=== PATIENT | female | born 1965 | race Caucasian/White ===

== ENCOUNTER 2019-01-11 15:00 | Emergency (ER) | payer BC ==
[2019-01-11] MEDS ORDERED: Tetan/Diph/Pertus SYR(Tdap)* 0.5 ML SYR(BOOSTRIX) use SYR IM ONE (16:01)
[2019-01-11] MEDS ORDERED: Lidocaine 1%** 5 ML VIAL INJ ONE (16:43)
--- NOTE | 2019-01-11 16:44 | ED ---
Upper Extremity Pain - HPI Summary HPI Summary: Patient is a 53-year-old female who presents emergency department for avulsion to second digit of the left hand that occurred earlier today. Patient states she was working outside when her dog tried to get out of dried so patient quickly closed rash and her second digit of left hand got pinched in door. Patient notes her last tetanus immunization was last year. Symptoms are mild in severity. Touching affected area makes symptoms worse. Nothing makes symptoms better. No other injuries sustained. - History of Current Complaint Chief Complaint: EDLacSutureRecheck Stated Complaint: LT INDEX FINGER INJ PER PT Time Seen by Provider: 01/11/19 15:07 Hx Obtained From: Patient - Allergies/Home Medications Allergies/Adverse Reactions: Allergies Allergy/AdvReac Type Severity Reaction Status Date / Time MS Penicillin V Allergy Intermediate Rash Verified 02/23/15 09:38 [Penicillin V] Penicillins Allergy Intermediate Rash Verified 01/11/19 15:35 MS NSAIDs [NSAIDs] AdvReac Intermediate GI Upset Verified 02/23/15 09:38 NSAIDS (Non-Steroidal AdvReac Intermediate GI Upset Verified 01/11/19 15:35 Anti-Inflamma Home Medications: Home Medications Budesonide CAP(NF) 3 tab PO DAILY 01/11/19 [History Confirmed 01/11/19] inFLIXimab* [Remicade*] 1 applic IV SEE INSTRUCTIONS 01/11/19 [History Confirmed 01/11/19] PMH/Surg Hx/FS Hx/Imm Hx Previously Healthy: Yes Endocrine/Hematology History: Denies: Hx Diabetes, Hx Thyroid Disease Cardiovascular History: Denies: Hx Hypertension Respiratory History: Denies: Hx Asthma, Hx Chronic Obstructive Pulmonary Disease (COPD) GI History: Reports: Hx Crohn's Disease, Hx Gastroesophageal Reflux Disease, Other GI Disorders - HX OF GI BLEEDS 2 YRS AGO, SMALL BOWEL OBSTRUCTION 1 YR AGO Denies: Hx Ulcer History: Reports: Hx Kidney Stones - 1999 WITH LITHOTRIPSY Musculoskeletal History: Reports: Hx Arthritis - TOES, Other Musculoskeletal History - OSTEOARTHRITIS RIGHT FOOT Sensory History: Reports: Hx Contacts or Glasses - READING Denies: Hx Hearing Aid Opthamlomology History: Reports: Hx Contacts or Glasses - READING - Cancer History Hx Radiation Therapy: No - Surgical History Surgery Procedure, Year, and Place: Anal Fistulas [facility]3- [facility]. ovarian cystectomies- [facility]. UTERINE ABALTION- [facility]. cysto stent 1999- [facility] Hx Anesthesia Reactions: No - Immunization History Date of Tetanus Vaccine: 02/2018 Infectious Disease History: No Infectious Disease History: Denies: Hx Hepatitis, Hx Human Immunodeficiency Virus (HIV), Traveled Outside the [place] in Last 30 Days - Family History Known Family History: Positive: Non-Contributory - Social History Occupation: Employed Full-time Lives: With Family Alcohol Use: Occasionally Alcohol Amount: 4-5 DRINKS/MONTH Substance Use Type: Reports: None Smoking Status (MU): Light Every Day Tobacco Smoker Type: Cigarettes Amount Used/How Often: 1/2 PPD FOR 30 YRS Length of Time of Smoking/Using Tobacco: 30 YRS Have You Smoked in the Last Year: Yes Review of Systems Positive: Other - skin avulsion 2nd digit left hand Positive: Other - avulsion 2nd digit left hand Neurological: Negative All Other Systems Reviewed And Are Negative: Yes Physical Exam Triage Information Reviewed: Yes Vital Signs On Initial Exam: Initial Vitals Temp Pulse Resp BP Pulse Ox 98.7 F 84 18 165/90 99 01/11/19 15:01 01/11/19 15:01 01/11/19 15:01 01/11/19 15:01 01/11/19 15:01 Vital Signs Reviewed: Yes Appearance: Positive: Well-Appearing - Pt. sitting on bed in NAD. Family member present. Skin: Positive: Warm, Dry Head/Face: Positive: Normal Head/Face Inspection Eyes: Positive: Normal, EOMI Neck: Positive: Supple Musculoskeletal: Positive: Other - Superficial skin avulsion to distal tip of 2nd digit of left hand. Minimal active bleeding. Full ROM of digit. No bony tenderness. No nail damage. Neurological: Positive: Normal, CN Intact II-III Psychiatric: Positive: Affect/Mood Appropriate Procedures - Procedure Summary Procedure Summary: Digital block to second digit of left hand: Base of second digit cleansed with alcohol swabs. 4 cc of lidocaine was injected into the base of digit with good anesthesia. Patient tolerated well. Wound was irrigated with saline and cleaned with Hibiclens. Sterile dressing placed. - Splinting Left 2nd Digit Splint: finger splint Pre-Proc Neuro Vasc Exam: normal Post-Proc Neuro Vasc Exam: normal Diagnostics - Vital Signs Vital Signs Temp Pulse Resp BP Pulse Ox 01/11/19 15:01 98.7 F 84 18 165/90 99 - Laboratory Lab Statement: Any lab studies that have been ordered have been reviewed, and results considered in the medical decision making process. Course/Dx - Course Course Of Treatment: Pt. with superficial skin avulsion. No bony tenderness. Tetanus UTD. Digit block performed for pain control and wound cleaning. Finger splint placed for comfort. Pt. will f.u with pcp for wound check. To keep wound clean and dry. Tylenol for pain as directed. To return to ER for redness, swelling, or drainage from wound. Pt. understands and agrees with plan. - Diagnoses Differential Diagnosis/HQI/PQRI: Positive: Fracture (Closed), Hematoma, Laceration Provider Diagnoses: Avulsion of finger tip Discharge - Sign-Out/Discharge Documenting (check all that apply): Patient Departure Patient Received Moderate/Deep Sedation with Procedure: No - Discharge Plan Condition: Improved Disposition: HOME Patient Education Materials: Skin Avulsion (ED) Forms: *Work Release Referrals: Kimmy Eldridge NP [Primary Care Provider] - Additional Instructions: Follow up with PCP for wound check within one week Keep wound clean and dry Tylenol for pain as directed Return to ER for redness, swelling, or drainage from wound - Billing Disposition and Condition Condition: IMPROVED Disposition: Home
[2019-01-11] MEDS ORDERED: Bacitracin OINTMENT* 0.5% 0.5 oz TUBE TOPICAL ONE (16:45)
[2019-01-11 17:54] VITALS: BP 133/78
== END 2019-01-11 17:54 | disposition home or self-care (01) ==
LOC: ED 15:00
DX: S61.201A Unspecified open wound of left index finger without damage to nail, initial encounter (principal); W23.0XXA Caught, crushed, jammed, or pinched between moving objects, initial encounter; Y92.59 Other trade areas as the place of occurrence of the external cause; K50.90 Crohn's disease, unspecified, without complications; Z88.6 Allergy status to analgesic agent; Z88.0 Allergy status to penicillin; F17.210 Nicotine dependence, cigarettes, uncomplicated
CPT/HCPCS: 90715; 99282; A9270-GY

== ENCOUNTER 2019-04-29 14:21 | Emergency (ER) | payer BC ==
--- OUTSIDE RECORDS SUMMARY | 2019-04-29 14:42 | XMS REPORT | Summary of Care ---
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 Infusion Center Outpatient [address] [place] [id number] Allergies Active Allergy Reactions Severity Noted Date Comments Penicillins Rash 07/02/2013 documented as of this encounter (statuses as of 03/09/2019) Medications Medication Sig Dispensed Refills Start Date End Date Status ClonazePAM (KLONOPIN Take 0.5 mg by 0 Active PO) mouth EVERY EVENING. DULoxetine HCl Take 60 mg by mouth 0 Active (CYMBALTA PO) DAILY. Probiotic Product Take by mouth 0 Active (PROBIOTIC PO) DAILY. pantoprazole Take 1 Tab by mouth 30 Tab 3 04/19/2018 Active (PROTONIX) 40 MG Oral DAILY. Tab EC infliximab (REMICADE) 26 mL by 3 vial 5 05/01/2018 Active 100 MG Intravenous Intravenous route Recon Soln DIRECTED for 1 dose. Infuse 260 mg every 8 weeks ondansetron (ZOFRAN) Take 0.5 Tabs by 20 Tab 1 09/18/2018 Active 8 MG Oral Tab mouth EVERY TWELVE HOURS NEEDED (nausea). rifaximin (XIFAXAN) Take 550 mg by 0 Active 550 MG Oral Tab mouth THREE TIMES DAILY. dicyclomine (BENTYL) Take 20 mg by mouth 0 Active 20 MG Oral Tab FOUR TIMES DAILY. diphenoxylate-atropin Take 1 Tab by mouth 0 Active e (LOMOTIL) 2.5-0.025 FOUR TIMES DAILY MG Oral Tab NEEDED for diarrhea. dicyclomine (BENTYL) TAKE ONE TABLET BY 120 Tab 0 11/12/2018 Active 20 MG Oral Tab MOUTH FOUR TIMES A DAY documented as of this encounter (statuses as of 03/09/2019) Active Problems Problem Noted Date Tobacco use 09/11/2013 IBS (irritable bowel syndrome) 09/11/2013 Crohn's disease 09/11/2013 documented as of this encounter (statuses as of 03/09/2019) Social History Tobacco Use Types Packs/Day Years Used Date Current Some Day Smoker Cigarettes 0.5 Quit: 10/15/2013 Smokeless Tobacco: Never Used Alcohol Use Drinks/Week oz/Week Comments Yes S[place] Sex Assigned at Date Recorded Not on file Job Start Date Occupation Industry Not on file Not on file Not on file Travel History Travel Start Travel End No recent travel history available. documented as of this encounter Last Filed Vital Signs Vital Sign Reading Time Taken Comments Blood Pressure 133/88 03/07/2019 2:52 PM EDT Pulse 86 03/07/2019 2:52 PM EDT Temperature 36.8 03/07/2019 2:52 PM EDT C (98.3 F) Respiratory Rate 16 03/07/2019 2:52 PM EDT Oxygen Saturation - - Inhaled Oxygen Concentration - - Weight - - Height - - Body Mass Index - - documented in this encounter Plan of Treatment Date Type Specialty Care Team Description 05/02/2019 Appointment Infusion Therapy Health Maintenance Due Date Last Done Comments PAP SMEAR 1965 PNEUMOCOCCAL 0-64 YRS (1 of 1 10/25/1969 - PPSV23) DEPRESSION SCREENING 1975 HIV SCREENING 10/25/1978 LIPID DISORDER SCREENING 10/25/1981 HEPATITIS C SCREENING 2003 MAMMOGRAM (SCREENING) 2003 ZOSTER IMMUNIZATION SERIES (1 10/25/2013 of 2) INFLUENZA VACCINE (#1) 2019 COLONOSCOPY SCREENING 02/05/2021 02/05/2018, 01/01/2016, 01/01/2016 HPV IMMUNIZATION SERIES Aged Out No longer eligible based on patient's age to complete this topic MENINGOCOCCAL VACCINE IMM Aged Out No longer eligible based on patient's age to complete this topic documented as of this encounter Procedures Procedure Name Priority Date/Time Associated Comments Diagnosis CBC WITH DIFFERENTIAL Routine 03/07/2019 2:41 Results for this PM EDT procedure are in the results section. COMPREHENSIVE Routine 03/07/2019 2:41 Results for this METABOLIC PANEL PM EDT procedure are in the results section. documented in this encounter Results COMPREHENSIVE METABOLIC PANEL (03/07/2019 2:41 PM EDT) Sodium 135 134 - 145 mmol/L [facility] Potassium 4.3 3.5 - 5.1 mmol/L [facility] Chloride 100 98 - 107 mmol/L [facility] CO2 30 22 - 30 mmol/L [facility] Calcium 9.3 8.3 - 10.1 mg/dl [facility] Albumin 3.9 3.5 - 5.0 g/dl [facility] BUN 11 7 - 17 mg/dl [facility] Creatinine 0.7 0.7 - 1.2 mg/dl [facility] Glucose 90 70 - 99 mg/dl [facility] Total Protein 7.2 6.3 - 8.2 g/dl [facility] Total Bilirubin 0.2 0.0 - 1.1 MG/DL [facility] AST 29 15 - 46 U/L [facility] ALT 25 9 - 52 U/L [facility] Alkaline 64 40 - 150 U/L [facility] eGFR >60 See Interpretation [facility] Comment: Below ml/min/1.73ml [facility] Estimated GFR Interpretation: Above 60ml/min/1.73m2 = Normal Renal Function 30-59 ml/min/1.73m2 = Stage 3 Chronic Kidney Disease 15-29 ml/min/1.73m2 = Stage 4 Chronic Kidney Disease Less than 15 ml/min/1.73m2 = Stage 5 Chronic Kidney Disease The GFR value is calculated using the Modification of Diet in Renal Disease ( MDRD) Study Equation which can be found at: https://www.kidney.org/content/ahbg-wpewg-zoemcsvh BUN/Creatinine 16 6 - 22 RATIO [facility] Anion Gap 5 3 - 11 mmol/L [facility] A/G Ratio 1.2 0.8 - 2.0 ratio [facility] Specimen Blood Performing Organization Address City/State/Zipcode Phone Number [facility] [address] [place] [address] [phone] CBC WITH DIFFERENTIAL (03/07/2019 2:41 PM EDT) WBC Count 9.85 3.98 - 10.04 K/uL [facility] RBC Count 4.01 3.93 - 5.22 M/UL [facility] Hemoglobin 12.4 11.2 - 15.7 g/dL [facility] Hematocrit 37.7 34.1 - 44.9 % [facility] MCV 94.0 79.4 - 94.8 FL [facility] MCH 30.9 25.6 - 32.2 PG [facility] MCHC 32.9 32.2 - 35.5 g/dL [facility] Platelet Count 383 (H) 182 - 369 K/uL [facility] MPV 8.2 (L) 9.4 - 12.3 FL [facility] RDW 12.8 11.7 - 14.4 % [facility] Neutrophil % 64.6 34.0 - 71.1 % [facility] Lymphocyte % 26.3 19.3 - 51.7 % [facility] Monocyte % 6.9 4.7 - 12.5 % [facility] Eosinophil % 1.4 0.7 - 5.8 % [facility] Basophil % 0.5 0.1 - 1.2 % [facility] nRBC % 0.0 0.0 - 0.2 % [facility] Neutrophil # 6.36 (H) 1.56 - 6.13 K/UL [facility] Lymphocyte # 2.59 1.18 - 3.74 K/UL [facility] Monocyte # 0.68 0.24 - 0.86 K/UL [facility] Eosinophil # 0.14 0.04 - 0.36 K/UL [facility] Basophil # 0.05 0.01 - 0.08 K/UL [facility] Immature Gran % 0.3 0.0 - 0.4 % [facility] Immature Gran # 0.03 0.00 - 0.03 K/uL [facility] NRBC # 0.00 0.00 - 0.12 K/uL [facility] Specimen Blood Performing Organization Address City/State/[facility] Phone Number [facility] [address] [place] [address] [phone] documented in this encounter Administered Medications Medication Order MAR Action Action Date Dose Rate Site acetaminophen (TYLENOL) tablet Given 03/07/2019 3:00 PM EDT 650 mg 650 mg 650 mg, Oral, X1, 1 dose, First dose on Rosalie 03/07/19 at 1600 diphenhydrAMINE (BENADRYL) capsule 25 mg Given 03/07/2019 2:35 PM EDT 25 mg 25 mg, Oral, X1, 1 dose, First dose on Rosalie 03/07/19 at 1600 infliximab (REMICADE) IV mixture 260 mg New Bag 03/07/2019 3:09 PM EDT 260 mg 260 mg, Intravenous, X1, 1 dose, First dose on Rosalie 03/07/19 at 1600 methylPREDNISolone (SOLU-MEDROL) injection New Bag 03/07/2019 3:01 PM EDT 80 mg 80 mg 80 mg, Intravenous, X1, 1 dose, First dose on Rosalie 03/07/19 at 1600 documented in this encounter Insurance Payer Benefit Plan / Subscriber ID Effective Dates Phone Address Type Group BCBS EMPIRE BCBS EMPIRE PPO xxxxxxxxxxxx 2017-Present Blue Cross/Blue Shield Guarantor Name Account Type Relation to Date of Phone Billing Patient Address Elaine Dominguez Personal/Family 1965 [address] (Home) [place], [place] [phone] (Work) documented as of this encounter
[2019-04-29 16:06] LABS: ABS Basophils 0.1 10^3/ul (0-0.2); ABS Eosinophils 0.2 10^3/ul (0-0.6); ABS Lymphocytes 2.3 10^3/ul (1.0-4.8); ABS Monocytes 0.6 10^3/ul (0-0.8); ABS Neutrophils 6.1 10^3/ul (1.5-7.7); Hematocrit 38 % (35-47); Hemoglobin 12.6 g/dL (12.0-16.0); Lymphocyte % 24.8 %; Mean Corpuscular HGB Conc 33 g/dL (31-36); Mean Corpuscular Hemoglobin 31 pg (27-31); Mean Corpuscular Volume 93 fL (80-97); Mean Platelet Volume 6.2 fL (7.4-10.4); Nucleated Red Blood Cells % 0.1; Platelet Count 396 10^3/uL (150-450); Red Blood Count 4.08 10^6 /uL (3.70-4.87); Red Cell Distribution Width 13 % (10-15); White Blood Count 9.3 10^3/uL (3.5-10.8)
[2019-04-29 16:38] LABS: Albumin 3.9 g/dL (3.2-5.2); Albumin/Globulin Ratio 1.3 (1-3); BUN/Creatinine Ratio 13.3 (8-20); C Reactive Protein 6.75 mg/L (<8.01); Calcium 9.5 mg/dL (8.6-10.3); EGFR African American 97.1 (>60); EGFR Non-African American 80.2 (>60); Globulin 2.9 g/dL (2-4); Potassium 4.3 mmol/L (3.5-5.0); Total Bilirubin 0.3 mg/dL (0.2-1.0); Total Protein 6.8 g/dL (6.4-8.9)
[2019-04-29] MEDS ORDERED: Lidocaine 2% VISCOUS* 15 ML UDC PO ONE (17:55)
[2019-04-29] MEDS ORDERED: Al Hydrox/Mg Hydrox/Simet LIQ* 30 ML UDC PO ONE (17:55)
[2019-04-29 18:20] LABS: Urine Appearance Cloudy; Urine Bacteria Absent (Absent); Urine Bilirubin Negative (Negative); Urine Blood 2+ (Negative); Urine Color Yellow; Urine Glucose Negative (Negative); Urine Ketones Trace (Negative); Urine Nitrite Negative (Negative); Urine Protein Negative (Negative); Urine Red Blood Cell 2+(6-10/hpf) (Absent); Urine Specific Gravity 1.025 (1.010-1.030); Urine Squamous Epithelial Cell Present (Absent); Urine Urobilinogen Negative (Negative); Urine White Blood Cell Trace(0-5/hpf) (Absent)
[2019-04-29] MEDS ORDERED: Pantoprazole TAB * 40 MG TAB PO ONE (19:42)
--- NOTE | 2019-04-29 19:44 | ED ---
Abdominal Pain/Female - HPI Summary HPI Summary: Patient complains of epigastric pain after eating radiating to left shoulder, nausea 3 days. Patient has taken Tums which provides relief. Patient states symptoms are new onset. Denies fever, cough, sore throat, CP, SOB, V/D, change in urine, change in BM, vaginal symptoms. Abdominal surgical history is none. Positive smoker. - History of Current Complaint Chief Complaint: EDAbdPain Stated Complaint: ABD PAIN PER PT Time Seen by Provider: 04/29/19 17:44 Hx Obtained From: Patient Onset/Duration: Sudden Onset, Lasting Days Timing: Intermittent Episode Lasting Severity Initially: Moderate Severity Currently: Moderate Pain Intensity: 6 Pain Scale Used: 0-10 Numeric Location: Epigastric Radiates to: Other Character: Sharp, Burning Aggravating Factor(s): Food Alleviating Factor(s): Antacids Associated Signs and Symptoms: Positive: Nausea Allergies/Adverse Reactions: Allergies Allergy/AdvReac Type Severity Reaction Status Date / Time MS Penicillin V Allergy Intermediate Rash Verified 02/23/15 09:38 [Penicillin V] Penicillins Allergy Intermediate Rash Verified 01/11/19 15:35 MS NSAIDs [NSAIDs] AdvReac Intermediate GI Upset Verified 02/23/15 09:38 NSAIDS (Non-Steroidal AdvReac Intermediate GI Upset Verified 01/11/19 15:35 Anti-Inflamma Home Medications: Home Medications Lactobacillus Acidophilus [Probiotic] 1 cap PO DAILY 04/29/19 [History Confirmed 04/29/19] Multivitamins/Minerals TAB* [Theragran/minerals TAB*] 1 tab PO DAILY 04/29/19 [ History Confirmed 04/29/19] PMH/Surg Hx/FS Hx/Imm Hx Endocrine/Hematology History: Denies: Hx Diabetes, Hx Thyroid Disease Cardiovascular History: Denies: Hx Hypertension Respiratory History: Denies: Hx Asthma, Hx Chronic Obstructive Pulmonary Disease (COPD) GI History: Reports: Hx Crohn's Disease, Hx Gastroesophageal Reflux Disease, Other GI Disorders - HX OF GI BLEEDS 2 YRS AGO, SMALL BOWEL OBSTRUCTION 1 YR AGO Denies: Hx Ulcer History: Reports: Hx Kidney Stones - 1999 WITH LITHOTRIPSY Musculoskeletal History: Reports: Hx Arthritis - TOES, Other Musculoskeletal History - OSTEOARTHRITIS RIGHT FOOT Sensory History: Reports: Hx Contacts or Glasses - READING Denies: Hx Hearing Aid Opthamlomology History: Reports: Hx Contacts or Glasses - READING EENT History: Denies: Hx Hearing Aid - Cancer History Hx Radiation Therapy: No - Surgical History Surgery Procedure, Year, and Place: Anal Fistulas [facility]3- [facility]. ovarian cystectomies- [place]. UTERINE ABALTION- [facility]. cysto stent 1999- [facility] Hx Anesthesia Reactions: No - Immunization History Date of Tetanus Vaccine: 02/2018 Infectious Disease History: No Infectious Disease History: Denies: Hx Hepatitis, Hx Human Immunodeficiency Virus (HIV), Traveled Outside the [place] in Last 30 Days - Family History Known Family History: Positive: Non-Contributory - Social History Alcohol Use: Occasionally Alcohol Amount: 4-5 DRINKS/MONTH Substance Use Type: Reports: None Smoking Status (MU): Light Every Day Tobacco Smoker Type: Cigarettes Amount Used/How Often: 1/2 PPD FOR 30 YRS Length of Time of Smoking/Using Tobacco: 30 YRS Have You Smoked in the Last Year: Yes Review of Systems Constitutional: Negative Eyes: Negative ENT: Negative Cardiovascular: Negative Respiratory: Negative Positive: Abdominal Pain, Nausea Genitourinary: Negative Musculoskeletal: Negative Skin: Negative Neurological: Negative Psychological: Normal All Other Systems Reviewed And Are Negative: Yes Physical Exam - Summary Physical Exam Summary: Tenderness to palpation in epigastrium and right upper quadrant. Abdominal exam otherwise unremarkable. Triage Information Reviewed: Yes Vital Signs On Initial Exam: Initial Vitals Temp Pulse Resp BP Pulse Ox 98.8 F 79 18 127/88 97 04/29/19 14:32 04/29/19 14:32 04/29/19 14:32 04/29/19 14:32 04/29/19 14:32 Vital Signs Reviewed: Yes Appearance: Positive: Well-Appearing Skin: Positive: Warm Head/Face: Positive: Normal Head/Face Inspection Eyes: Positive: Normal Neck: Positive: Supple Respiratory/Lung Sounds: Positive: Clear to Auscultation Cardiovascular: Positive: Normal Abdomen Description: Positive: Other: Musculoskeletal: Positive: Normal Neurological: Positive: Normal Psychiatric: Positive: Normal AVPU Assessment: Alert - Ajit Coma Scale Best Eye Response: 4 - Spontaneous Best Motor Response: 6 - Obeys Commands Best Verbal Response: 5 - Oriented Coma Scale Total: 15 Procedures - Sedation Patient Received Moderate/Deep Sedation with Procedure: No Diagnostics - Vital Signs Vital Signs Temp Pulse Resp BP Pulse Ox 04/29/19 17:15 98.6 F 71 16 112/78 98 04/29/19 14:32 98.8 F 79 18 127/88 97 - Laboratory Lab Results: Lab Results 04/29/19 04/29/19 04/29/19 Range/Units 15:50 15:50 15:50 WBC 9.3 (3.5-10.8) 10^3/uL RBC 4.08 (3.70-4.87) 10^6 /uL Hgb 12.6 (12.0-16.0) g/dL Hct 38 (35-47) % MCV 93 (80-97) fL MCH 31 (27-31) pg MCHC 33 (31-36) g/dL RDW 13 (10-15) % Plt Count 396 (150-450) 10^3/uL MPV 6.2 L (7.4-10.4) fL Neut % (Auto) 65.7 % Lymph % (Auto) 24.8 % Sutter % (Auto) 6.8 % Eos % (Auto) 2.0 % Baso % (Auto) 0.7 % Absolute Neuts (auto) 6.1 (1.5-7.7) 10^3/ul Absolute Lymphs (auto) 2.3 (1.0-4.8) 10^3/ul Absolute Monos (auto) 0.6 (0-0.8) 10^3/ul Absolute Eos (auto) 0.2 (0-0.6) 10^3/ul Absolute Basos (auto) 0.1 (0-0.2) 10^3/ul Absolute Nucleated RBC 0.0 10^3/ul Nucleated RBC % 0.1 Sodium 138 (135-145) mmol/L Potassium 4.3 (3.5-5.0) mmol/L Chloride 104 (101-111) mmol/L Carbon Dioxide 30 (22-32) mmol/L Anion Gap 4 (2-11) mmol/L BUN 10 (6-24) mg/dL Creatinine 0.75 (0.51-0.95) mg/dL Est GFR ( Amer) 97.1 (>60) Est GFR (Non-Af Amer) 80.2 (>60) BUN/Creatinine Ratio 13.3 (8-20) Glucose 88 (70-100) mg/dL Lactic Acid 0.4 L (0.5-2.0) mmol/L Calcium 9.5 (8.6-10.3) mg/dL Total Bilirubin 0.30 (0.2-1.0) mg/dL AST 16 (13-39) U/L ALT 11 (7-52) U/L Alkaline Phosphatase 53 (34-104) U/L Troponin I 0.00 (<0.04) ng/mL C-Reactive Protein 6.75 (<8.01) mg/L Total Protein 6.8 (6.4-8.9) g/dL Albumin 3.9 (3.2-5.2) g/dL Globulin 2.9 (2-4) g/dL Albumin/Globulin Ratio 1.3 (1-3) Lipase 28 (11.0-82.0) U/L Urine Color Urine Appearance Urine pH (5-9) Ur Specific [place] (1.010-1.030) Urine Protein (Negative) Urine Ketones (Negative) Urine Blood (Negative) Urine Nitrate (Negative) Urine Bilirubin (Negative) Urine Urobilinogen (Negative) Ur Leukocyte Esterase (Negative) Urine WBC (Auto) (Absent) Urine RBC (Auto) (Absent) Ur Squamous Epith Cells (Absent) Urine Bacteria (Absent) Urine Glucose (Negative) 04/29/19 Range/Units 18:03 WBC (3.5-10.8) 10^3/uL RBC (3.70-4.87) 10^6 /uL Hgb (12.0-16.0) g/dL Hct (35-47) % MCV (80-97) fL MCH (27-31) pg MCHC (31-36) g/dL RDW (10-15) % Plt Count (150-450) 10^3/uL MPV (7.4-10.4) fL Neut % (Auto) % Lymph % (Auto) % Sutter % (Auto) % Eos % (Auto) % Baso % (Auto) % Absolute Neuts (auto) (1.5-7.7) 10^3/ul Absolute Lymphs (auto) (1.0-4.8) 10^3/ul Absolute Monos (auto) (0-0.8) 10^3/ul Absolute Eos (auto) (0-0.6) 10^3/ul Absolute Basos (auto) (0-0.2) 10^3/ul Absolute Nucleated RBC 10^3/ul Nucleated RBC % Sodium (135-145) mmol/L Potassium (3.5-5.0) mmol/L Chloride (101-111) mmol/L Carbon Dioxide (22-32) mmol/L Anion Gap (2-11) mmol/L BUN (6-24) mg/dL Creatinine (0.51-0.95) mg/dL Est GFR ( Amer) (>60) Est GFR (Non-Af Amer) (>60) BUN/Creatinine Ratio (8-20) Glucose (70-100) mg/dL Lactic Acid (0.5-2.0) mmol/L Calcium (8.6-10.3) mg/dL Total Bilirubin (0.2-1.0) mg/dL AST (13-39) U/L ALT (7-52) U/L Alkaline Phosphatase (34-104) U/L Troponin I (<0.04) ng/mL C-Reactive Protein (<8.01) mg/L Total Protein (6.4-8.9) g/dL Albumin (3.2-5.2) g/dL Globulin (2-4) g/dL Albumin/Globulin Ratio (1-3) Lipase (11.0-82.0) U/L Urine Color Yellow Urine Appearance Cloudy Urine pH 5.0 (5-9) Ur Specific [place] 1.025 (1.010-1.030) Urine Protein Negative (Negative) Urine Ketones Trace A (Negative) Urine Blood 2+ A (Negative) Urine Nitrate Negative (Negative) Urine Bilirubin Negative (Negative) Urine Urobilinogen Negative (Negative) Ur Leukocyte Esterase 2+ A (Negative) Urine WBC (Auto) Trace(0-5/hpf) (Absent) Urine RBC (Auto) 2+(6-10/hpf) A (Absent) Ur Squamous Epith Cells Present A (Absent) Urine Bacteria Absent (Absent) Urine Glucose Negative (Negative) Result Diagrams: 04/29/19 15:50 04/29/19 15:50 Lab Statement: Any lab studies that have been ordered have been reviewed, and results considered in the medical decision making process. Abdominal Pain Fem Course/Dx - Course Course Of Treatment: Patient complains of epigastric pain after eating radiating to left shoulder, nausea 3 days. Patient has taken Tums which provides relief. Patient states symptoms are new onset. Denies fever, cough, sore throat, CP, SOB, V/D, change in urine, change in BM, vaginal symptoms. Abdominal surgical history is none. Positive smoker. Vital signs within normal limits. Labs unremarkable. EKG heart rate 62, sinus rhythm, normal P axis. No priors on file. Ultrasound gallbladder impression: Borderline prominence of the common bile duct measuring up to 7 mm been no visible choledocholithiasis to the extent visualized. Gallbladder normal. Patient's symptoms improved with GI cocktail. Patient started on omeprazole. Advised to follow-up with GI for endoscopy if symptoms continue. - Diagnoses Provider Diagnoses: Gastritis Discharge ED - Sign-Out/Discharge Documenting (check all that apply): Patient Departure - Discharge Plan Condition: Stable Disposition: HOME Prescriptions: Lidocaine 2% VISCOUS* [Xylocaine 2% Viscous*] 15 ml SWISH SPIT Q6H PRN #1 btl PRN Reason: Pain - Moderate Omeprazole 20 mg PO DAILY #30 capsule. Patient Education Materials: Gastritis (ED) Referrals: Kimmy Eldridge AC[facility] FILLER [Primary Care Provider] - Additional Instructions: Take omeprazole daily. If symptoms do not improve by 1 week, follow-up with your GI Dr Valadez for further evaluation. Return to the ED for any worsening symptoms. - Billing Disposition and Condition Condition: STABLE Disposition: Home
[2019-04-29 20:16] VITALS: BP 122/82
== END 2019-04-29 20:16 | disposition home or self-care (01) ==
LOC: ED 14:21
DX: K29.70 Gastritis, unspecified, without bleeding (principal); K50.90 Crohn's disease, unspecified, without complications; K21.9 Gastro-esophageal reflux disease without esophagitis; F17.210 Nicotine dependence, cigarettes, uncomplicated; Z79.899 Other long term (current) drug therapy; Z88.6 Allergy status to analgesic agent; Z88.0 Allergy status to penicillin
CPT/HCPCS: 36415; 76705; 80053; 81003; 81015; 83605; 83690; 84484; 85025; 86140; 87086; 93005; 99283; A9270-GY